=== PATIENT | male | born 1965 ===

== ENCOUNTER 2017-01-11 17:38 | Inpatient (IN) | payer MEDICAID ==
[~2017-01-11] VITALS: Ht 182.9 cm; Wt 92.1 kg
[2017-01-11 18:22] LABS: HEMATOCRIT 54.3 % (42.0-54.0); HEMOGLOBIN 18.9 g/dL (13.5-17.5); MCH 29.8 pg (26.0-34.0); MCHC 34.8 g/dL (31.0-37.0); MCV 85.6 fL (80.0-100.0); MEAN PLATELET VOLUME 9.3 fL (7.4-10.4); PLATELET COUNT 315 10x3/uL (130-400); RBC 6.34 10x6/uL (4.20-6.10); RDW 13.9 % (11.5-14.5); WBC 24.5 10x3/uL (4.8-10.8)
[2017-01-11 18:39] LABS: ALBUMIN 5.3 g/dL (3.4-5.0); ALKALINE PHOSPHATASE 100 U/L (46-116); ALT (SGPT) 21 U/L (10-68); BILIRUBIN - TOTAL 0.79 mg/dL (0.2-1.3); CALC OSMOLALITY 288 mosm/kg (275-300); CARBON DIOXIDE 23.1 mmol/L (21.0-32.0); CHLORIDE - SERUM 103 mmol/L (98-107); CREATININE - SERUM 2.1 mg/dL (0.6-1.3); GLUCOSE 136 mg/dL (74-106); POTASSIUM - SERUM 3.9 mmol/L (3.5-5.1); PROTEIN - SERUM 9.5 g/dL (6.4-8.2); SODIUM 143 mmol/L (136-145); UREA NITROGEN 19 mg/dL (7-18); eGFR NON AFRICAN AMERICAN 36 mL/min (90-120)
[2017-01-11 18:47] LABS: CHOL - HDL RATIO 6.4 ratio (2.3-4.9); CHOLESTEROL, TOTAL 254 mg/dL (0-200); CKMB 1.2 U/L (0.0-3.6); CREATINE KINASE 106 UL (21-232); HDL CHOLESTEROL 40 mg/dL (32-96); LDL CHOLESTEROL 174 mg/dL (0-100); LDL-HDL RATIO 4.4 ratio (1.5-3.5); LIPASE 169 U/L (73-393); TRIGLYCERIDE 202 mg/dL (30-200)
[2017-01-11 18:48] LABS: TROPONIN-I < 0.017 ng/mL (0.000-0.060)
[2017-01-11 18:52] LABS: EOSINOPHILS 1 % (0-7); LYMPHOCYTES 7 % (15-50); MONOCYTES 3 % (2-11); NEUTROPHILS 84 % (40-80); PLATELET ESTIMATE NORMAL
[2017-01-11 19:00] VITALS: BP 131/82
[2017-01-11 19:59] LABS: UDS - AMPHET NEGATIVE QUAL (NEGATIVE); UDS - BARB NEGATIVE QUAL (NEGATIVE); UDS - BENZO NEGATIVE QUAL (NEGATIVE); UDS - COCAINE NEGATIVE QUAL (NEGATIVE); UDS - METH NEGATIVE QUAL (NEGATIVE); UDS - OPIATE POSITIVE QUAL (NEGATIVE); UDS - PCP NEGATIVE QUAL (NEGATIVE); UDS - THC POSITIVE QUAL (NEGATIVE)
[2017-01-11 20:02] LABS: APPEARANCE HAZY (CLEAR); COLOR DK YELLOW (YELLOW)
[2017-01-11 20:03] LABS: BILIRUBIN NEGATIVE (NEGATIVE); GLUCOSE NEGATIVE (NEGATIVE); KETONE NEGATIVE (NEGATIVE); LEUKOCYTE ESTERASE TRACE (NEGATIVE); NITRITE NEGATIVE (NEGATIVE); PROTEIN TRACE mg/dL (NEGATIVE); SPECIFIC GRAVITY 1.025 (1.005-1.020); UROBILINOGEN NORMAL (NORMAL)
[2017-01-11 20:04] LABS: BACTERIA MODERATE /hpf (NONE SEEN); EPITHELIAL CELLS 0-5 /hpf (0-5); MUCUS >1+ /lpf (NONE SEEN); RED CELLS - URINE 0-5 /hpf (0-5); WHITE CELLS - URINE 0-5 /hpf (0-5)
[2017-01-11 22:30] LABS: CREATINE KINASE 146 UL (21-232); TROPONIN-I < 0.017 ng/mL (0.000-0.060)
--- NOTE | 2017-01-11 22:33 | NUR ---
RECEIVED REPORT FROM NICOLE IN ER, IV TO ELIDA, 24 GAUGE, PT HAS MEDS, TOLD HIM WE WILL HAVE TO PLACE IN PHARMACY, WILL CONTINUE PLAN OF CARE
[2017-01-11] MEDS ORDERED: TORADOL10 MG PO (22:43)
[2017-01-11] MEDS ORDERED: ZOLOFT100 MG PO (22:46)
[2017-01-11] MEDS ORDERED: PRAZOSIN HCL 1 MG (22:48)
[2017-01-11] MEDS ORDERED: KLONOPIN1 MG PO (22:49)
[2017-01-11] MEDS ORDERED: KEPPRA500 MG PO (22:50)
[2017-01-11] MEDS ORDERED: LYRICA100 MG PO (22:52)
[2017-01-11] MEDS ORDERED: PHENERGAN25 M1 PO (22:52)
[2017-01-11] MEDS ORDERED: FLOMAX0.4 MG PO (22:53)
[2017-01-11] MEDS ORDERED: CIPRO500 MG (22:53)
[2017-01-11] MEDS ORDERED: HYDROXYZINE HCL50 MG (22:55)
[2017-01-11] MEDS ORDERED: ZANTAC150 MG PO (22:56)
[2017-01-11] MEDS ORDERED: SEROQUEL300 MG PO (22:56)
[2017-01-11] MEDS ORDERED: CYCLOBENZAPRINE10 MG PO (22:57)
[2017-01-11] MEDS ORDERED: VISTARIL25 MG PO (22:58)
[2017-01-12] VITALS: BP 100/56
--- NOTE | 2017-01-12 00:16 | NUR ---
ASSESSMENT REMAINS UNCHANGED. PT RESTING SOUNDLY WITHOUT C/O OR DISTRESS NOTED. DENIES ANY CURRENT C/O PAIN. WILL CONT TO MONITOR
[2017-01-12 00:17] VITALS: BMI 28.9
--- NOTE | 2017-01-12 00:26 | NUR ---
ALL HOME MEDS WERE COUNTED PER CHARGE NURSE TAY REYNA AND SHAINA REYNA, NAME PLACED ON FOUR PHARMACY BAGS, WILL SEND TO PHARMACY
[2017-01-12 04:06] VITALS: BP 103/59
[2017-01-12 06:33] LABS: CALCIUM 9.3 mg/dL (8.5-10.1); CARBON DIOXIDE 21.7 mmol/L (21.0-32.0); CHLORIDE - SERUM 106 mmol/L (98-107); CKMB 0.8 U/L (0.0-3.6); CREATINE KINASE 83 UL (21-232); GLUCOSE 157 mg/dL (74-106); POTASSIUM - SERUM 4.3 mmol/L (3.5-5.1); SODIUM 144 mmol/L (136-145); eGFR NON AFRICAN AMERICAN 53 mL/min (90-120)
[2017-01-12 06:34] LABS: CALC OSMOLALITY 295 mosm/kg (275-300); CREATININE - SERUM 1.5 mg/dL (0.6-1.3); UREA NITROGEN 28 mg/dL (7-18)
--- NOTE | 2017-01-12 07:00 | NUR ---
RECEIVED REPORT. PATEINT TOSSING/TURNING IN BED. PATIENT STATES HE HAS BEEN IN PAIN SINCE 0300 BUT WILL NOT STATE WHERE THE PAIN IS FOR THIS NURSE. TELEMETRY REAPPLIED AT THIS TIME. IV SITE TO RIGHT FOOT WITH 24 GAUGE PATENT. RESP EVEN AND UNLABORED.
[2017-01-12 07:42] VITALS: BP 110/68
--- NOTE | 2017-01-12 07:44 | NUR ---
0721 CALLED KNITTING TEACHER REQUESTING ASSISTANCE WITH PATIENT. PATIENT IS VERY AGGITATED/BELIGERENT BECAUSE HE IS WANTING PAIN MEDICATION. KNITTING TEACHER TO FLOOR AND SECURITY OUTSIDE OF PATIENTS ROOM. PATIENT HOLLORING AND REQUESTING TO BE SENT TO [facility]. PAIN MEDICATION HAS NOT BEEN ORDERED BY MD DUE TO HYPPOTENSION.
--- NOTE | 2017-01-12 07:50 | NUR ---
PAGED AT THIS TIME.
--- NOTE | 2017-01-12 07:55 | NUR ---
PATIENTS MEDICATION SENT TO PHARMACY AT THIS TIME.
--- NOTE | 2017-01-12 08:17 | NUR ---
RECEIVED VERBAL AUTHORIZATION FROM PATIENT TO SPEAK TO HIS NIECE FELICIA NEGRO TO DISCUSS HIS PLAN OF CARE. [phone]. PATIENTS NEICE STATES THAT SHE IS PRETTY MUCH THE ONLY FAMILY HE HAS. PATIENT CONTINUES TO BE AGGITATED BUT SLIGHTLY ABLE TO BE TALKED DOWN. COOL WASH CLOTH PROVIDED AND WIPED PATIENTS FACE DOWN. PATIENT CONTINUES TO FLIP FLOP IN BED AND BE IRRATIONAL.
--- NOTE | 2017-01-12 08:42 | NUR ---
RECIEVED ORDERS FROM FOR HYDROXYZINE 25MG PO X 1 NOW. ORDERS REPEATED AND VERIFIED WITH MD. ORDERS PLACED IN SYSTEM.
--- NOTE | 2017-01-12 08:50 | NUR ---
AT BEDSIDE WITH PATIENT. BEHAVIORS CONTINUE. PATIENT HAS TOSSED/TURNED AND NOW IV SITE TO RIGHT FOOT HAS DISLODGED. WILL ATTEMPT TO RESITE. PATIENT STATES THAT HE UNDERWENT CHEMO FOR COLON CANCER AND USUALLY HAS TO HAVE A PICC LINE INSERTED.
--- NOTE | 2017-01-12 09:31 | NUR ---
[address]YING TO [address] IV UNSUCCESSFUL. ABLE TO INSERT INTO RUTH BUT VEIN BLOWS INSTANTLY. WILL HAVE OTHER NURSES TRY AT PLACEMENT.
--- NOTE | 2017-01-12 11:13 | NUR ---
RADIOLOGY CALLED FOR PATIENTS CTA. INFORMED PADMINI THAT PATIENT HAS NO IV AND THAT WE ARE STILL TRYING TO PLACE ONE. PADMINI STATES THAT WE HAVE TO PLACE A 18 OR 20 GAUGE FOR CTA TO BE COMPLETED. INFORMED HER THIS DIVERSIFIED CROPS II FARMWORKER WILL CALL WHEN IV OR LINE IS PLACED. EXPLAINED TO HER THAT PATIENT USUALLY REQUIRES PICC PLACEMENT.
--- NOTE | 2017-01-12 11:46 | NUR ---
PATIENT IS MORE CALM, LESS MYCLONIC MOVEMENTS NOTED. PATIENT IS SITTING IN BED CONVERSING ON PHONE. ABLE TO BETTER UNDERSTAND PATIENT. CALL LIGHT WITHIN REACH. NO DISTRESS. STILL AWAITING IV PLACEMENT.
--- NOTE | 2017-01-12 12:08 | NUR ---
RECEIVED NEW ORDER FROM TO GIVE BENADRYL 50MG Q6P SINCE PATIENT DOES NOT HAVE PATENT IV AT THIS TIME.
--- NOTE | 2017-01-12 12:15 | NUR ---
PATIENT MEDICATED WITH BENADRYL AT THIS TIME. PATIENT STARTED HAVING SHAKES AGIAN, COMPLAINING OF PAIN, HAVING DIFFICULTY WITH SPEECH HYDROXYZINE WEARING OFF. PATIENT RESING IN BED AT THIS TIME WITH CELL PHONE IN HIS HAND. RESP EVEN AND UNLABORED.
[2017-01-12 12:20] VITALS: BP 124/86
--- NOTE | 2017-01-12 12:43 | NUR ---
20 GAUGE PLACED TO RIGHT UPPER ARM X 1 STICK VIA NGUYỄN CHAVIRA RN. TAPED, DATED AND SECURED. TOLERATED IV PLACEMENT WELL. IF FLUIDS INFUSING ORDERED AT THIS TIME AND RADIOLOGY NOTIFIED OF IV PLACMENT FOR CTA TO BE COMPLETED.
--- NOTE | 2017-01-12 12:59 | NUR ---
24 GAUGE REMOVED FROM RIGHT FOOT AT THIS TIME. NO BLEEDING FROM SITE. CALL LIGHT WITHIN REACH. 2X2 APPLIED TO SITE AND SECURED WITH TAPE.
--- NOTE | 2017-01-12 15:05 | NUR ---
PATIENT RETURNED TO UNIT AT THIS TIME FROM HAVING CTA OF CHEST. PADMINI FROM RADIOLOGY INFORMED THIS NURSE THAT THE VEIN BLEW AT THE END OF THE TEST. WARM COMPRESSES WERE APPLIED. PATIENT IS NOW WITHOUT AN IV SITE. PATIENT IS REFUSING ANOTHER ATTEMPT AT AN IV PLACEMENT. PATIENT IS REQUESTING PICC PLACMENT. CONTACTED TREE TAPPING LABORER AND WAS TOLD THAT THEIR IS NOBODY THAT WILL PLACE A PICC, IT WILL HAVE TO WAIT UNTIL SATURDAY. THE OTHER OPTION WOULD BE TO PLACE A CENTRAL LINE. CALL PLACED TO TO SEE IF HE WANTS A CVL OR DOES HE WANT TO WAIT UNTIL SATURDAY FOR PICC PLACEMENT. PATIENTS FAMILY CALLING BECAUSE PATIENT IS CALLING THEM. PATIENT STANDING IN DOORWAY WAVING AT THIS NURSE ASKING FOR HER TO COME TO HIS ROOM WHILE IS SERGIO IS ON THE THE PHONE, 4TH TIME SHE HAS CALLED TODAY, TELLING ME THAT HER UNCLE IS FREAKIN OUT. THIS SUPERVISOR DRY PASTE INFORMED HER, I HAVE YOUR UNCLE STANDING IN THE DOORWAY OF HIS ROOM WAVING AT ME AND YOU ON THE PHONE AND I CAN'T TAKE CARE OF BOTH. EXPLAINED TO THE SERGIO THAT THE RUTH BLEW AND WE ARE WORKING TOWARD A PICC PLACEMENT AT THIS TIME. SERGIO ENDED CALL WITH THIS SUPERVISOR DRY PASTE.
--- NOTE | 2017-01-12 15:15 | NUR ---
SPOKE TO AND INFORMED HIM OF PATIENTS IV BLOWING IN RADIOLOGY AND THAT THERE IS NOBODY TO PLACE A PICC ON THE WEEKEND PER FOCUSED FACTORY MANAGER AND THE OPTION THAT THIS BLACK TOP PAVER OPERATOR WAS PRESENTED WITH IS TO HAVE THE SURGEON PLACE A CVL. UPSET AND STATED TO GO AHEAD AND CONTACT THE SURGEON. THANKED
--- NOTE | 2017-01-12 15:17 | NUR ---
CALLED BACK TO UNIT AND REQUESTED DIRECTOR OF SALES SUPPORT CALL HIM BECAUSE IT IS NOT JUSTIFYABLE FOR PATIENT TO HAVE CVL PLACED BECAUSE OF THE INCONVENIENCE OF CALLING SOMEONE IN TO PLACE A PICC ON THE WEEKEND. PATIENT SHOULD NOT UNDERGO A MORE INVASIVE PROCEDURE. CALLED DIRECTOR OF SALES SUPPORT AND GAVE ANJU THE DIRECT PHONE NUMBER FOR . ANJU STATED HE WOULD CALL DR. ROLAND.
--- NOTE | 2017-01-12 15:47 | NUR ---
20 GAUGE IV PLACED TO LEFT WRIST X 1 STICK VIA ASYM III. DATE, TAPED AND SECURED. TOLERATED IV PLACEMENT WELL. MORPHINE GIVEN FOR CHEST AND BACK PAIN. PATIENT IS CALM, CONVERSING NORMALLY AFTER RECEIVING MORPHINE FOR PAIN. IV FLUIDS INFUSING ORDERED.
--- NOTE | 2017-01-12 17:05 | NUR ---
THIS MANAGER SOUND HAS BEEN UNABLE TO KEEP PATIENT ON TELEMETRY THIS SHIFT DUE TO HIS CONSTANT THRASHING AROUND IN BED. PATIENT RELATIONS REPRESENTATIVE STATED PATIENT HAS NOT BEEN ON THE MONTIOR ALL DAY SO SHE PLACED MY NAME ON THE TOP OF HIS TELEMETRY SLIP. THIS MANAGER SOUND HAS BEEN AT PATIENT BEDSIDE MOST ALL OF THIS SHIFT!!!! TELEMETRY STILL IS NOT APPLIED AT THIS TIME.
--- NOTE | 2017-01-12 18:17 | NUR ---
RESTING IN BED. CALL LIGHT WITHIN REACH. IV FLUIDS INFUSING ORDERED. NO DISTRESS AT THIS TIME. RESP EVEN AND UNLABORED.
--- NOTE | 2017-01-12 19:33 | NUR ---
PT LYING IN BED LOOKING AT HIS CELL PHONE, AWAKE, ALERT, ORIENTED. PT DENIES ANY NEEDS AT THIS TIME. PT DOES DEMONSTRATE UNCONTROLLED FACIAL MOVEMENTS, HOWEVER HE IS NO ACUTE DISTRESS AT THIS TIME. WILL MONITOR CLOSELY. BED LOW, CALL LIGHT IN REACH, SIDE RAILS X 2, HOB 25 DEGREES.
[2017-01-12 20:00] VITALS: BP 126/83
--- NOTE | 2017-01-12 22:03 | NUR ---
PT REQUESTING PRN MORPHINE R/T CHEST PAIN, AND ALSO CONCERNED ABOUT NOT RECEIVING HIS KEPPRA. HE STATES THAT HE BEGAN HAVING SEIZURES APPROX 2 YEARS AGO, AND THE MOST RECENT ONE WAS 4 MONTHS AGO. WILL MAINTAIN SEIZURE PRECAUTIONS. PT STATES HE STARTED HAVING SEIZURES AFTER RECEIVING CHEMO R/T COLON CANCER, AND THE KEPPRA DOES WELL TO CONTROL THE SEIZURES. WILL CONSULT WITH PHYSICIAN FOR FURTHER ORDERS. CONTINUE TO MONITOR CLOSELY.
--- NOTE | 2017-01-13 00:31 | NUR ---
PT CALLED C/O COUGH WITH GREAT CHEST PAIN. IT IS TOO EARLY FOR PRN MORPHINE. WHEN I WENT TO ASSESS PT, HE WAS SLEEPING FACE DOWN ON HIS STOMACH. WILL CONTINUE TO MONITOR CLOSELY.
--- NOTE | 2017-01-13 02:03 | NUR ---
PT'S IV WAS ALARMING, PT AWAKE, ALERT, ORIENTED, DENIES ANY NEEDS AT THIS TIME. PT HAS BEEN RESTING COMFORTABLY. CONTINUE TO MONITOR CLOSELY.
[2017-01-13 04:00] VITALS: BP 103/71
--- NOTE | 2017-01-13 04:51 | NUR ---
PT CALLED C/O CHEST PAIN, REQUESTING HIS PRN MORPHINE. DURING THIS TIME, PT BEGAN HAVING VERY LARGE, GENERALIZED, UNCONTROLLED BODY MOVEMENTS, FROM HIS HEAD/FACE, BOTH ARMS, HIS TORSO, AND BOTH LEGS. PT DID KEEP CONSCIOUSNESS DURING THIS TIME, STATING THAT HE FEELS LIKE HE COULD HAVE A SEIZURE ANY TIME, AND IS ASKING TO HAVE HIS KEPPRA, LYRICA AND KLONOPIN RESTARTED. PT STATES THAT HIS LAST SEIZURE WAS 4 MONTHS AGO AND HAS BEEN WELL CONTROLLED WITH KEPPRA, LYRICA, AND KLONOPIN. PRN MORPHINE AND IV BENADRYL GIVEN WITH PT BEING ABLE TO CONTROL HIS MOVEMENTS SOMEWHAT BETTER. PT STILL DEMONSTRATES SEVERE FACIAL TICS. I HAVE ENCOURAGED PT TO REST, AND WILL DISCUSS THESE NEEDS WITH ROUNDING PHYSICIAN THIS AM AND SOONER IF NEEDED. WILL PAD THE BEDSIDE RAILS FOR PT SAFETY IN THE EVENT PT DOES HAVE SEIZURE ACTIVITY. WILL CONTINUE TO MONITOR CLOSELY AND FREQUENTLY.
[2017-01-13 04:58] LABS: BASOPHILS 0.1 % (0-2); EOSINOPHILS 1.7 % (0-7); IMMATURE GRANULOCYTES 0.4 % (0-5); MCH 28.8 pg (26.0-34.0); MCHC 33.3 g/dL (31.0-37.0); MCV 86.7 fL (80.0-100.0); MEAN PLATELET VOLUME 9.2 fL (7.4-10.4); MONOCYTES 7.5 % (2-11); NEUTROPHILS 65.3 % (40-80); RDW 13.8 % (11.5-14.5)
[2017-01-13 05:00] LABS: HEMATOCRIT 41.8 % (42.0-54.0); HEMOGLOBIN 13.9 g/dL (13.5-17.5); PLATELET COUNT 246 10x3/uL (130-400); RBC 4.82 10x6/uL (4.20-6.10); WBC 13.9 10x3/uL (4.8-10.8)
[2017-01-13 05:18] LABS: ALKALINE PHOSPHATASE 64 U/L (46-116); ALT (SGPT) 17 U/L (10-68); BILIRUBIN - TOTAL 0.43 mg/dL (0.2-1.3); CALCIUM 8.5 mg/dL (8.5-10.1); CARBON DIOXIDE 24.1 mmol/L (21.0-32.0); CHLORIDE - SERUM 109 mmol/L (98-107); POTASSIUM - SERUM 3.8 mmol/L (3.5-5.1); SODIUM 142 mmol/L (136-145); UREA NITROGEN 30 mg/dL (7-18)
[2017-01-13 05:22] LABS: ALBUMIN 3.4 g/dL (3.4-5.0); CALC OSMOLALITY 288 mosm/kg (275-300); GLUCOSE 103 mg/dL (74-106); PROTEIN - SERUM 6.6 g/dL (6.4-8.2); eGFR NON AFRICAN AMERICAN 84 mL/min (90-120)
--- NOTE | 2017-01-13 05:43 | NUR ---
PT IS NOW C/O NAUSEA, BUT IS LYING IN BED, RESTING COMFORTABLY AT THIS TIME. CONTINUE TO MONITOR CLOSELY. THERE ARE NO PRN MEDS FOR NAUSEA AT THIS TIME.
[2017-01-13 08:00] VITALS: BP 109/67
--- NOTE | 2017-01-13 08:07 | NUR ---
AM ROUNDING- RECEIVED REPORT FROM LOAN REVIEW MANAGER NURSE KASSIDY. PT IS CURRENTLY LAYING IN BED ON RIGHT SIDE APPEARING TO BE SHAKING WITH TREMORS. SIDE RAILS ARE PADDED AND BED IS IN LOW POSITION. ON ROOM AIR. PER REPORT PT REFUSES TELEMETRY. IV SEEN TO LEFT WRIST WITH NS RUNNING AT 150CC. PT IS STATING THAT HE NEEDS SOMETHING FOR NAUSEA AND THAT HE NEEDS TO SPEAK WITH DR. ROLAND REGARDING HIS HOME MEDICATIONS THAT HE NEEDS TO BE RESTARTED ON SUCH HIS SEIZURE MEDICATION. WILL AWAIT DR. ROLAND TO GET TO UNIT AND WILL SEE ABOUT ADRESSING THIS WITH HIM THEN. WILL CONTINUE TO MONITOR AND CONTINUE WITH PLAN OF CARE.
--- NOTE | 2017-01-13 11:17 | NUR ---
PATIENT NURSE BUSY AT THIS TIME. PATIENT HAVING SEVERE PAIN AND MYCLONUS MOVEMENTS. PATIENT MEDICATED WITH PAIN AT THIS TIME. IV FLUIDS INFUSING ORDERED. NO DISTRESS.
[2017-01-13 12:00] VITALS: BP 120/75
--- NOTE | 2017-01-13 14:06 | NUR ---
PT IS CURRENTLY LAYING IN BED ON RIGHT SIDE WITH EYES CLOSED RESTING. BED IS IN LOW POSITION, SIDE RAILS ARE UP X2 AND PADDED. WILL CONTINUE TO MONITOR.
[2017-01-13 16:00] VITALS: BP 97/57
--- NOTE | 2017-01-13 16:25 | NUR ---
PT IS CURRENTLY SITTING UP IN BED ON CELL PHONE. PT DENIES ANY NEED AT CURRENT TIME. BED IS IN LOW POSITION, SIDE RAILS ARE UP X2 AND PADDED, CALL LIGHT IS IN REACH, AND NON-SKID SOCKS ARE ON.
--- NOTE | 2017-01-13 18:18 | NUR ---
PT IS CURRENTLY LAYING IN BED ON BACK WITH EYES OPEN RESTING WATCHING TV. NO NEED AT CURRENT TIME. BED IS IN LOW POSITION, SIDE RAILS ARE UP X2 (PADDED), CALL LIGHT IS IN REACH, AND NON-SKID SOCKS ARE ON. WILL CONTINUE TO MONITOR.
--- NOTE | 2017-01-13 20:17 | NUR ---
PT LYING IN BED, AWAKE, ALERT, ORIENTED, TALKING ON CELL PHONE ABOUT BEING TRANSFERRED TO [facility]. PT DENIES ANY NEEDS AT THIS TIME. CONTINUE TO MONITOR CLOSELY.
--- NOTE | 2017-01-13 21:17 | NUR ---
PT IS HAVING SEVERE MUSCULAR JERKING UNABLED TO BE CONTROLLED, PRN BENADRYL GIVEN. I PAGED AND SPOKE WITH DR. ROLAND WHO ORDERED THE BENADRYL BE GIVEN 30 MINUTES TO GET IN HIS SYSTEM, AND IF NO CHANGE, GIVE A ONE TIME DOSE OF VALIUM 2MG. CONTINUE TO MONITOR CLOSELY.
--- NOTE | 2017-01-13 21:47 | NUR ---
SPOKE WITH DR. ROLAND AGAIN R/T PTS CONDITION. PT IS STILL WRITHING IN BED, SEVERE UNCONTROLLED MUSCULAR MOVEMENTS, SIDE RAILS PADDED, PT AWAKE, ALERT, TALKING, FEARFUL AND TEARFUL OF GOING INTO A MASSIVE SEIZURE AT THIS TIME. DR. ROLAND DID ORDER ANOTHER DOSE OF IV VALIUM 2MG AT THIS TIME.
--- NOTE | 2017-01-13 22:02 | NUR ---
PTS UNCONTROLLED MOVEMENTS FINALLY STOPPED AFTER 2ND DOSE OF VALIUM 2MG. PT IS RESTING COMFORTABLY WITH NO MORE EXCESSIVE JERKING AT THIS TIME. B/P IS 123/81, PULSE 79, O2 SAT @ 98% ON 2LPM VIA NC. I PLACED THE O2 DURING HIS EPISODE. WILL CONTINUE TO MONITOR CLOSELY.
--- NOTE | 2017-01-13 22:18 | NUR ---
PT REMAINS SEDATED, CALM, WITHOUT JERKING MOVEMENTS, RESPIRATIONS EVEN AND UNLABORED AT THIS TIME. CONTINUE TO MONITOR CLOSELY.
[2017-01-13 22:41] VITALS: BP 120/75
--- NOTE | 2017-01-13 23:17 | NUR ---
PT STILL RESTING COMFORTABLY, IN NO ACUTE DISTRESS, IS ROUSABLE TO VERBAL STIMULI, DOES ROUSE CONFUSED, EASILY REORIENTED. CONTINUE TO MONITOR CLOSELY. BED LOW, CALL LIGHT IN REACH, HOB 15 DEGREES, SIDE RAILS X 3 PADDED, NO MORE JERKING OR FLOPPING AT THIS TIME.
--- NOTE | 2017-01-14 01:15 | NUR ---
PT LYING IN BED ON HIS RIGHT SIDE, EYES CLOSED, RESPIRATIONS EVEN AND UNLABORED, IN NO ACUTE DISTRESS AT THIS TIME. PT IS ROUSABLE TO VERBAL STIMULI, EASILY RETURNS TO SLEEP STATE. CONTINUE TO MONITOR CLOSELY.
--- NOTE | 2017-01-14 01:30 | NUR ---
PT PULLED IV OUT OF LEFT WRIST ACCIDENTALLY. WILL TRY TO RESITE, HOWEVER PT STATES HE IS DIFFICULT TO SITE. THERE IS AN ORDER FOR VENOUS ACCESS NURSE TO PLACE MIDLINE LATER TODAY.
--- NOTE | 2017-01-14 02:00 | NUR ---
PT IS BECOMING INCREASINGLY AGITATED R/T HIS IV BEING OUT, DEMANDING A CENTRAL LINE OR PICC AT THIS POINT. I HAVE REASSURED PT THREE TIMES SO FAR NOW THAT HE HAS CALLED ABOUT HIS PAIN MEDICATION SINCE IV HAS BEEN PULLED OUT THAT IT WILL TAKE SOME TIME BEFORE HE WILL BE RESITED, BUT THAT WE ARE TRYING TO DO IT SOON POSSIBLE.
[2017-01-14 02:51] VITALS: BP 95/66
--- NOTE | 2017-01-14 03:45 | NUR ---
@ 0300 PT STARTED COMING OUT OF HIS ROOM, ASKING ABOUT WHEN HIS IV WAS GOING TO BE RESITED, THE THIRD TIME WITHIN 10 MINUTES, PT STATED THAT HE WAS LEAVING SINCE HE WAS NOT RECEIVING PROPER MEDICAL CARE. I EXPLAINED TO PT THAT SINCE HE STATED MANY TIMES THAT HE IS SUCH A RIGID IV STICK, AND "ALWAYS" REQUIRES ACCESS VIA CVL OR PICC, THAT I WAS NOT A GOOD ENOUGH IV SITER AND WAS WAITING FOR ASSISTANCE FROM ANOTHER NURSE THAT WAS BETTER AT RESITING IV'S. PT DID PUT HIS PANTS ON ALONG WITH HIS BOOTS, AND HAD GATHERED THE BELONGINGS FROM HIS ROOM, WITH THE INTENTION TO LEAVE AMA. PT STATED THAT HE WOULD NOT SIGN THE AMA FORM, AND WAS LEAVING REGARDLESS. I EXPLAINED TO PT THAT IT WOULD NOT BENEFIT HIM TO LEAVE AGAINST MEDICAL ADVICE, HE HAS NO TRANSPORTATION OR FAMILY NEARBY. I EXPLAINED TO PT THAT WE ARE IN NO WAY REFUSING TO TREAT HIM MEDICALLY OR DENYING HIM ANY TX, ONLY THAT WE ALL HAVE MANY OTHER PATIENTS THAT ALSO REQUIRE TIME AND ATTENTION. I CALLED SECURITY TO COME AND STAND BY IN CASE PT DID DECIDE TO LEAVE AMA OR BECOME MORE AGITATED OR AGGRESSIVE. PT AGREED TO STAY EVEN KNOWING THAT HE IS GOING TO HAVE TO BE PATIENT UNTIL WE CAN GET THE IV RESITED. I HAVE ENCOURAGED PT TRY AND REST AND TAKE SLOW DEEP BREATHS. PT HAS AGREED TO STAY AND WAIT. IT IS NOW 0406 01/15/16, AND PT IS BEING RESITED BY ZULEIKA FRIAS RN. WILL CONTINUE TO MONITOR PT CLOSELY.
[2017-01-14 05:00] LABS: BASOPHILS 0.2 % (0-2); EOSINOPHILS 2.1 % (0-7); HEMATOCRIT 41.8 % (42.0-54.0); HEMOGLOBIN 13.5 g/dL (13.5-17.5); IMMATURE GRANULOCYTES 0.3 % (0-5); LYMPHOCYTES 26.6 % (15-50); MCH 28.3 pg (26.0-34.0); MCHC 32.3 g/dL (31.0-37.0); MCV 87.6 fL (80.0-100.0); MEAN PLATELET VOLUME 9.6 fL (7.4-10.4); MONOCYTES 7.7 % (2-11); NEUTROPHILS 63.1 % (40-80); PLATELET COUNT 236 10x3/uL (130-400); RBC 4.77 10x6/uL (4.20-6.10); RDW 13.7 % (11.5-14.5); WBC 11.4 10x3/uL (4.8-10.8)
[2017-01-14 05:16] LABS: ALBUMIN 3.5 g/dL (3.4-5.0); ALKALINE PHOSPHATASE 60 U/L (46-116); ALT (SGPT) 18 U/L (10-68); CALCIUM 8.6 mg/dL (8.5-10.1); CARBON DIOXIDE 24.1 mmol/L (21.0-32.0); CHLORIDE - SERUM 108 mmol/L (98-107); GLUCOSE 92 mg/dL (74-106); POTASSIUM - SERUM 3.4 mmol/L (3.5-5.1); PROTEIN - SERUM 6.4 g/dL (6.4-8.2); SODIUM 141 mmol/L (136-145); eGFR NON AFRICAN AMERICAN 84 mL/min (90-120)
[2017-01-14 05:18] LABS: CALC OSMOLALITY 282 mosm/kg (275-300); UREA NITROGEN 18 mg/dL (7-18)
[2017-01-14 05:27] VITALS: BP 119/74
--- NOTE | 2017-01-14 05:37 | NUR ---
IV RESITED TO RIGHT WRIST X 1 STICK PER ZULEIKA MOORE RN. PT TOLERATED WELL, PATENT, PRN MORPHINE AND BENADRYL GIVEN.
--- NOTE | 2017-01-14 06:47 | NUR ---
PT LYING IN ON RIGHT SIDE, EYES CLOSED, RESPIRATIONS EVEN AND UNLABORED. CONTINUE TO MONITOR.
[2017-01-14 08:00] VITALS: BP 113/81
--- NOTE | 2017-01-14 10:48 | NUR ---
LAYING R SIDE - C/O PAIN ALL OVER - MORPHINE GIVEN - DENIES ANY OTHER NEEDS
[2017-01-14 11:01] VITALS: Ht 182.9 cm; Wt 92.1 kg
--- NOTE | 2017-01-14 12:11 | NUR ---
Patient Name: NATASHA NEGRO Admission Status: ER Accout number: [id number] Admission Date: 01-12-2017 : 1965 Admission Diagnosis: Attending: ALURI Current LOS: 2 Anticipated DC Date: 01-16-2017 Planned Disposition: Home Primary Insurance: MEDICAID [place] Discharge Planning Comments: * Is the patient Alert and Oriented? Yes 0 * How many steps to enter\exit or inside your home? NONE 0 * PCP DR[facility] STINSON IN [facility] 0 * Pharmacy [facility] IN [facility] 0 * Preadmission Environment Home Alone 0 * ADLs Independent 0 * Equipment None 0 * Other Equipment NO MEDICAL EQUIPMENT PROVIDER PREFERENCE 0 * List name and contact numbers for known caregivers / representatives who currently or will assist patient after discharge: MAR MERINO, BROTHER, 0 * Community resources currently utilized None 0 * Please name any agencies selected above. NONE 0 * Additional services required to return to the preadmission environment? No 0 * Can the patient safely return to the preadmission environment? Yes 0 * Has this patient been hospitalized within the prior 30 days at any hospital? No 0 CM RECEIVED DISCHARGE PLANNING ORDER, MET WITH PT IN ROOM TO DISCUSS DISCHARGE PLANNING AND NEEDS. PT REPORTS LIVING AT HOME INDEPENDENTLY AND ALONE. PT HAS NO MEDICAL EQUIPMENT AND NO OUTSIDE SERVICES ASSISTING IN THE HOME. PT REPORTS HAVING AN APARTMENT AT [address] [place] [address], [facility], BUT HAS BEEN STAYING WITH HIS BROTHER IN [place], [place]. CM DISCUSSED AVAILABILITY OF HOME HEALTH, REHAB SERVICES AND MEDICAL EQUIPMENT. PT DENIES DISCHARGE NEEDS, REPORTS HIS BROTHER WILL PICK HIM UP FOR DISCHARGE HOME ON SATURDAY. PT REPORTS THE DOCTOR IS NOT SURE WHAT PT'S PROBLEM IS YET BUT WILL KNOW BY SATURDAY AND PT CAN GO HOME THEN. CM ASKED HOW PT'S TRUCK CAME TO BE WITH HIS BROTHER IN [place], [place]. PT REPORTS THAT PT WAS ON HIS WAY HOME TO [place] FROM [facility] WHEN HE BEGAN FEELING BAD. PT CALLED HIS BROTHER TO GET PT'S TRUCK OFF THE ROAD. PT REPORTS HE HAS NO MONEY AND GETS PAID ON THIRD SATURDAY EACH MONTH AND FAMILY WILL PICK HIM UP ON SATURDAY WHEN HE GETS PAID PT REPORTS THAT HIS MEDICAID SHOWS ADDRESS OF [address] [place] [address] IN [facility], WHERE PT IS STAYING WITH HIS BROTHER. PT REPORTS IF CM CAN GET MEDICAID TRANSPORT TO TAKE HIM HOME AT NO COSTS, PT WOULD LIKE IT DONE. CM OBTAINED EMERGENCY CONTACT INFORMATION, SOCIAL SECURITY NUMBER AND PT'S PHONE NUMBER AND PROVIDED TO REGISTRATION. CM CALLED [facility], MEDICAID TRANSPORTATION AT , SPOKE TO JOSE WHO VERIFIED PT HAS 6 TRANSPORTS PER YEAR AND HAS USED NONE. CM PLACED PT ON LIST FOR HOT CAR OPERATOR ON SATURDAY MORNING, 01-16-17. PT NOTIFIED. FOR DISCHARGE, CALL [facility] MEDICAID TRANSPORT AT TO VERIFY NEED OF TRANSPORT PICKUP WITH TRANSPORT TO [address] [place] [address]. PT'S PHONE IS [phone]. Biometrics Head: Dimas Mckeon
--- NOTE | 2017-01-14 13:09 | NUR ---
RESTS IN BED WITHOUT NEEDS VOICED. CALL LIGHT IN REACH. WILL CONT. PLAN OF CARE.
[2017-01-14 16:00] VITALS: BP 100/50
--- NOTE | 2017-01-14 20:36 | NUR ---
PT LYING IN BED, AWAKE, ALERT, ORIENTED, DENIES ANY NEEDS, STATES HE HAS NOT HAD ANYMORE UNCONTROLLED MOVEMENTS TODAY. CONTINUE TO MONITOR CLOSELY. BED LOW, CALL LIGHT IN REACH, SIDE RAILS X 2, HOB 20 DEGREES.
[2017-01-14 21:50] VITALS: BP 126/68
--- NOTE | 2017-01-15 00:49 | NUR ---
PT AWAKE, ALERT, ORIENTED, SITTING UP IN BED, EATING VERY LARGE AMOUNTS OF ICE CREAM. PT DENIES ANY NEEDS AT THIS TIME. CONTINUE TO MONITOR CLOSELY.
[2017-01-15 01:18] VITALS: BP 110/54
[2017-01-15 04:14] LABS: BASOPHILS 0.1 % (0-2); EOSINOPHILS 2.6 % (0-7); HEMOGLOBIN 14.1 g/dL (13.5-17.5); IMMATURE GRANULOCYTES 0.3 % (0-5); LYMPHOCYTES 36.9 % (15-50); MCH 28.6 pg (26.0-34.0); MCHC 32.8 g/dL (31.0-37.0); MCV 87.2 fL (80.0-100.0); MEAN PLATELET VOLUME 9.6 fL (7.4-10.4); NEUTROPHILS 51.1 % (40-80); PLATELET COUNT 209 10x3/uL (130-400); RBC 4.93 10x6/uL (4.20-6.10); RDW 13.6 % (11.5-14.5); WBC 8.6 10x3/uL (4.8-10.8)
[2017-01-15 04:34] LABS: ALBUMIN 3.3 g/dL (3.4-5.0); ALKALINE PHOSPHATASE 82 U/L (46-116); ALT (SGPT) 17 U/L (10-68); BILIRUBIN - TOTAL 0.18 mg/dL (0.2-1.3); CALC OSMOLALITY 284 mosm/kg (275-300); CALCIUM 8.1 mg/dL (8.5-10.1); CARBON DIOXIDE 25.4 mmol/L (21.0-32.0); CHLORIDE - SERUM 108 mmol/L (98-107); CREATININE - SERUM 1.1 mg/dL (0.6-1.3); GLUCOSE 87 mg/dL (74-106); POTASSIUM - SERUM 3.6 mmol/L (3.5-5.1); PROTEIN - SERUM 6.5 g/dL (6.4-8.2); SODIUM 142 mmol/L (136-145); UREA NITROGEN 21 mg/dL (7-18); eGFR NON AFRICAN AMERICAN 75 mL/min (90-120)
--- NOTE | 2017-01-15 04:51 | NUR ---
PT LYING IN BED, EYES CLOSED, RESPIRATIONS EVEN AND UNLABORED, EASILY ROUSABLE TO VERBAL STIMULI. PT HAS BEEN CALM, COOPERATIVE, AND PLEASANT THIS SHIFT. PT DENIES ANY NEEDS AT THIS TIME. CONTINUE TO MONITOR CLOSELY.
[2017-01-15 05:35] VITALS: BP 99/65
--- NOTE | 2017-01-15 07:57 | NUR ---
INTRODUCED MYSELF TO PT PRIMARY RN FOR TODAYS SHIFT. PT A&O SITTING UP IN BED EATING. PT HAS VERY FAST JERKFUL MOVEMENTS. PT KEEPS TELLING ME "YOU'RE SO PRETTY, I DONT HAVE TO GO HOME TODAY" PT GETTING IN MY FACE, ASKED HIM TO KEEP CALM AND SIT BACK SO I CAN ASSESS HIM. SHIFT ASSESSMENT COMPLETED. PT C/O BACK PAIN REQUESTING AND PROVIDED WITH PRN MORPHINE VIA R.WRIST PIV ACCESS. PT HAS NS INFUSING @100ML/HR. PT IS SUPPOSE TO BE DISCHARGED TODAY AND WILL HOPEFULLY GET TO GO HOME. ALL MORNING MEDICATIONS GIVEN. PT DENIES ANY FURTHER NEEDS AT THIS TIME. CL IN REACH, BED IN LOWEST, SIDE RAILS X2. WILL CPOC.
[2017-01-15 08:00] VITALS: BP 109/70
--- NOTE | 2017-01-15 08:58 | NUR ---
UPON RECHECKING PTS PAIN LEVEL. NOTED R.WRIST PIV IS INFILTRATED. PT IS AWAITING TRANSPORTATION SITUATION AND SHOULD BE DISCHARGED TODAY AND CURRENTLY NO NEED FOR IMMEDIATE PIV ACCESS. WILL REGAIN ACCESS WHEN ABLE TO SHORTLY IF PT IS NOT BEING DISCHARGED. CALLED DOCTORS OFFICE TO D/C ALL IV FLUIDS. CL IN REACH. WILL CTM.
--- NOTE | 2017-01-15 09:57 | NUR ---
Patient Name: NATASHA NEGRO Encounter No: [id number] : 1965 Primary Insurance: MEDICAID [place] Anticipated DC Date: 01-15-2017 Planned Disposition: Home DCP follow-up note: CM RECEIVED ORDER FOR TRANSPORTATION ASSISTANCE IF POSSIBLE. CM SPOKE TO PT WHO IS IN AGREEMENT WITH DISCHARGE TO [facility] AT HIS LISTED HOME ADDRESS FOR MEDICAID, WHERE HE STAYS WITH HIS BROTHER. PT REPORTS HIS TRUCK IS WITH HIS BROTHER, THEY HAVE NO MONEY FOR GAS. CM VERFIED ADDRESS, SOCIAL, PHONE AND EMERGENCY CONTACT. CM NOTIFED [facility] ADMISSIONS OF UPDATED INFORMATION. CM CALLED [facility] MEDICAID TRANSPORTATION, , SPOKE TO JOSE WHO VERIFIED PT HAS 6 TRANSPORTS PER YEAR AND HAS USED NONE. CM PLACED PT ON LIST FOR INCOMING INSPECTOR ON TODAY, VAN AVAILABLE FOR 1100 AM TODAY. [employer] NOTIFIED DR. ROLAND, PT, BEDSIDE NURSE AND FAMILY ENGAGEMENT SPECIALIST. Dimas Mckeon, CASE MANAGEMENT
--- NOTE | 2017-01-15 09:57 | NUR ---
PT WALKING OUT OF ROOM UP TO ME STATING "IM GOING HOME NOW" EXPLAINED TO PT HE CAN LEAVE WHEN I HAVE DISCHARGE PAPERS AND HE SIGNS. RIDE WILL BE HERE AROUND 11. ASSISTED PT WALKING BACK INTO HIS ROOM. NO FURTHER NEEDS. WILL CTM.
[2017-01-15] MEDS ORDERED: BENADRYL25 MG PO (09:58)
[2017-01-15] MEDS ORDERED: SEROQUEL100 MG PO (10:00)
--- NOTE | 2017-01-15 11:54 | NUR ---
DISCHARGE TEACHING PROVIDED AND PAPERS SIGNED. MEDICATIONS GIVEN BACK TO PT AND HE SIGNED FOR THEM STATING ALL WERE ACCURATE. PT BELONGINGS COLLECTED AND PT IS AWAITING TRANSPORTATION BUS. ENCOURAGED PT TO WAIT IN ROOM HOWEVER HE BECAME AGITATED AND STATED "IM GOING TO SMOKE EITHER WAY AND WALKED OUT TO LOBBY" WILL CTM UNTIL VAN ARRIVES.
--- NOTE | 2017-01-15 16:14 | NUR ---
TRANSPORTATION FINALLY ARRIVED. PT LEAVING ROOM WITH BELONGINGS NOW. NO FURTHER NEEDS.
== END 2017-01-15 16:15 | disposition home or self-care (01) | DRG 641 ==
LOC: D.ER 17:38 → D.M2 21:23 → OBSVTIME 21:23 → D.M2 01-12 11:11
PROVIDERS: Emergency Medicine; ADMIT Family Medicine
DX: E86.0 Dehydration (principal); N17.9 Acute kidney failure, unspecified; R07.9 Chest pain, unspecified; T43.596A Underdosing of other antipsychotics and neuroleptics, initial encounter; R56.9 Unspecified convulsions; F31.9 Bipolar disorder, unspecified; F11.90 Opioid use, unspecified, uncomplicated; F12.90 Cannabis use, unspecified, uncomplicated; Z85.038 Personal history of other malignant neoplasm of large intestine; Z72.0 Tobacco use